=== PATIENT | female | born 1935 | race Two or more races ===

== ENCOUNTER 2019-02-01 09:36 | Emergency (ER) | payer OTHER ==
[~2019-02-01] VITALS: Ht 162.6 cm; Wt 50.3 kg
--- NOTE | 2019-02-01 09:40 | NUR ---
PT AMBULATORY TO ER BED 05. 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 PT DENIES DIZZINESS OR SOB. PLACED ON MONITOR. AWAITING MD VEGA.
--- NOTE | 2019-02-01 09:54 | NUR ---
DR CASTRO AT BEDSIDE FOR EVAL.
--- NOTE | 2019-02-01 09:55 | NUR ---
GASTROENTEROLOGY NURSE AT BEDSIDE FOR BLOOD DRAW.
[2019-02-01 10:06] LABS: BASOPHILS # (AUTO) 0.1 /CMM (0.0-0.2); BASOPHILS % (AUTO) 2.5 % (0.0-2.0); EOSINOPHILS % (AUTO) 3.5 % (0.0-6.0); HEMATOCRIT 41 % (33-45); LYMPHOCYTES # (AUTO) 1.4 /CMM (0.8-4.8); LYMPHOCYTES % (AUTO) 32.2 % (20.0-44.0); MEAN CORPUSCULAR HGB CONC 34 g/dl (31.0-36.0); MEAN CORPUSCULAR VOLUME 92 fL (82-100); MONOCYTES # (AUTO) 0.3 /CMM (0.1-1.30); MONOCYTES % (AUTO) 6.1 % (2.0-12.0); NEUTROPHILS # (AUTO) 2.5 /CMM (1.8-8.9); NEUTROPHILS % (AUTO) 55.7 % (43.0-81.0); PLATELET COUNT (AUTO) 270 /CMM (150-450); RED BLOOD CELL COUNT(AUTO) 4.45 MIL/uL (4.0-5.2); WHITE BLOOD COUNT (AUTO) 4.5 K/uL (4.3-11.0)
--- NOTE | 2019-02-01 10:44 | NUR ---
NO ACTIVE NOSEBLEED AT THIS TIME. ON NASAL PACKING TO R NARES. D/C HOME IN STABLE CONDITION W/ REFFERALS.
[2019-02-01 10:47] VITALS: BP 152/77
== END 2019-02-01 10:48 | disposition home or self-care (01) ==
LOC: ER 09:36
DX: R04.0 Epistaxis (principal); I10 Essential (primary) hypertension; I48.91 Unspecified atrial fibrillation
CPT/HCPCS: 36415; 85025-TC; 85730-TC

== ENCOUNTER 2019-02-13 09:57 | Emergency (ER) | payer OTHER ==
[~2019-02-13] VITALS: Ht 162.6 cm; Wt 49.9 kg
[2019-02-13 10:00] VITALS: BP 181/106
[2019-02-13] MEDS ORDERED: OXYMETAZOLINE HCL NASAL SPRAY 30 ML BOTTLE NS ONE ×2 (10:06→10:30)
--- NOTE | 2019-02-13 10:20 | NUR ---
NOSEPACKED BY DR. OSORIO
== END 2019-02-13 10:48 | disposition home or self-care (01) ==
LOC: ER 10:00
DX: R04.0 Epistaxis (principal); I48.91 Unspecified atrial fibrillation; I10 Essential (primary) hypertension